=== PATIENT | female | born 1955 | race Caucasian/White ===

== ENCOUNTER 2016-10-09 06:43 | Day surgery (SDC) | payer OTHER ==
[~2016-10-09 06:43] MED LIST: Acetaminophen TAB* 325 MG PO PRN; Buffered Lidocaine 1% SYR 3ML* 3 ML/SYR SYRINGE INTRADERM ONE
[2016-10-09] MEDS ORDERED: fentaNYL* 50 MCG/ML 2 ML VIAL (100 MCG VIAL) ONE (07:26)
[2016-10-09] MEDS ORDERED: Midazolam* 1 MG/ML 5 ML VIAL (5 MG) ONE (07:26)
[2016-10-09] MEDS ORDERED: Artificial Tear OPHTH.OINT* 3.5 GM ONE (07:41)
[2016-10-09] MEDS ORDERED: Cyclopentolate 1% OPTH.SOL* 2 ML BTL ONE (07:42)
[2016-10-09] MEDS ORDERED: Phenylephrine 2.5% OPTH.SOL* 2 ML BTL ONE (07:42)
[2016-10-09] MEDS ORDERED: Flurbiprofen 0.03% OPTH.SOL* 2.5 ML BTL ONE (07:42)
[2016-10-09] MEDS ORDERED: Povidone Iodine 5% OPTH* 30 ML BTL ONE (07:42)
[2016-10-09] MEDS ORDERED: acetaZOLAMIDE TAB* 250 MG ONE (07:42)
[2016-10-09] MEDS ORDERED: Tetracaine 0.5% OPTH.SOL 4 ML* 1 DROP BTL ONE (07:42)
[2016-10-09] MEDS ORDERED: Lidocaine 1% MPF* 2 ML VIAL ONE (07:42)
[2016-10-09 08:20] VITALS: BP 161/80
[2016-10-09] MEDS ORDERED: Sodium Bicarbonate 8.4% SYR* 10 ML SYRINGE ONE (12:29)
[2016-10-09] MEDS ORDERED: Lidocain 1% EPI 1:100,000 * 30 ML MDV ONE (12:29)
[2016-10-09] MEDS ORDERED: Neomycin/Polymy/Dex OPHTH.OIN* 3.5 GM ONE (14:11)
--- NOTE | 2016-10-09 16:58 | OP ---
DATE OF OPERATION: 10/09/16 - [facility] DATE OF : 59 SURGEON: Antwon Art MD ANESTHESIOLOGIST: Rajehs Negro MD ANESTHESIA: Monitored anesthesia care. PRE-OP DIAGNOSIS: Cataract of the right eye. POST-OP DIAGNOSIS: Cataract of the right eye. OPERATIVE PROCEDURE: Cataract extraction of the right eye. IMPLANTS: SN60WF 22.5 diopter lens to the right eye. COMPLICATIONS: None. DESCRIPTION OF PROCEDURE: The patient was given phenylephrine 2.5% and cyclopentolate 1% eye drops to the operative eye in the preoperative area. The patient was brought to the operating room where a time-out was taken to identify the correct patient, site, and side of surgery. The patient's right eye was prepped and draped in usual sterile fashion with 5% Betadine. A second time-out was taken to verify the correct patient, site, and side of surgery and correct lens selection. A lid speculum was placed to the right eye. A 1 mm paracentesis blade was used to make a clear corneal incision in the superotemporal position. Preservative-free 1% lidocaine was injected into the anterior chamber. DuoVisc was then injected into the anterior chamber. A 2.75- mm keratome blade was used to make a triplanar incision at the inferotemporal position. A cystotome was used to initiate a capsulorrhexis, which was completed with Utrata forceps in a continuous and curvilinear manner. Hydrodissection of the lens was then performed with BSS on a cannula. The lens could be spun in the capsular bag. The phacoemulsification handpiece was then used with a divide and conquer technique to remove the nucleus in its entirety with 5.03 CDE. The I/A handpiece was then used to remove the residual cortical lens material. DuoVisc was then injected to inflate the capsular bag. The planned SN60WF 22.5 diopter lens was then injected into the capsular bag. The residual DuoVisc was then removed from the eye with the I/A handpiece. The corneal incisions were then hydrated and no leaks occurred at physiologic pressure around 20 mmHg per palpation. The lid speculum was then removed and drapes removed. Preservative-free Artificial Tears ointment was then placed on the surface of the operative eye. An adhesive patch and shield were then placed on the operative eye. The patient was taken to the postoperative area in stable condition. [id number]/[facility] #: [id number] MTDSudha
== END 2016-10-09 08:21 | disposition home or self-care (01) ==
LOC: OREAST 06:43
PROVIDERS: ATTEND Student in an Organized Health Care Education/Training Program
DX: H25.11 Age-related nuclear cataract, right eye (principal); Z87.891 Personal history of nicotine dependence
CPT/HCPCS: A9270-GY; J2250; J3010; V2632

== ENCOUNTER 2016-10-16 08:50 | Day surgery (SDC) | payer OTHER ==
[2016-10-16] MEDS ORDERED: Lidocaine 1% MPF* 2 ML VIAL ONE (09:50)
[2016-10-16] MEDS ORDERED: Tetracaine 0.5% OPTH.SOL 4 ML* 1 DROP BTL ONE (09:50)
[2016-10-16] MEDS ORDERED: Flurbiprofen 0.03% OPTH.SOL* 2.5 ML BTL ONE (09:50)
[2016-10-16] MEDS ORDERED: Povidone Iodine 5% OPTH* 30 ML BTL ONE (09:50)
[2016-10-16] MEDS ORDERED: acetaZOLAMIDE TAB* 250 MG ONE (09:50)
[2016-10-16] MEDS ORDERED: Neomycin/Polymy/Dex OPHTH.OIN* 3.5 GM ONE (09:50)
[2016-10-16] MEDS ORDERED: Cyclopentolate 1% OPTH.SOL* 2 ML BTL ONE (09:50)
[2016-10-16] MEDS ORDERED: Phenylephrine 2.5% OPTH.SOL* 2 ML BTL ONE (09:50)
[2016-10-16] MEDS ORDERED: Midazolam* 1 MG/ML 2 ML VIAL (2 MG) ONE ×2 (10:01→10:23)
[2016-10-16] MEDS ORDERED: fentaNYL* 50 MCG/ML 2 ML VIAL (100 MCG VIAL) ONE (10:23)
[2016-10-16 11:11] VITALS: BP 161/79
--- NOTE | 2016-10-17 02:49 | OP ---
DATE OF OPERATION: 10/16/16 - [facility] DATE OF : 59 SURGEON: Antwon Art MD ANESTHESIOLOGIST: Alfonso Phillips MD ANESTHESIA: Monitored anesthesia care. 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 POST-OP DIAGNOSIS: Cataract of the left with Fuchs. OPERATIVE PROCEDURE: Cataract extraction of the left eye. IMPLANTS: SN60WF 24.0 diopter lens to the left eye. COMPLICATIONS: None. DESCRIPTION OF PROCEDURE: The patient was given phenylephrine 2.5% and cyclopentolate 1% eyedrops in the operative eye in the preoperative area. The patient was brought to the operating room, where a time-out was taken to identify the correct patient, site, and side of the surgery. The patient's left eye was prepped and draped in the usual sterile fashion with 5% Betadine. A second time- out was taken to verify the correct patient, site, and side of surgery and correct lens selection. A lid speculum was placed to the left eye. A 1-mm paracentesis blade was used to make a clear corneal incision in the inferotemporal position. Preservative-free 1% lidocaine was injected into the anterior chamber. DuoVisc was then injected into the anterior chamber. A 2.75- mm keratome blade was used to make a triplanar incision at the superotemporal position. A cystotome was used to initiate a capsulorrhexis, which was completed with Utrata forceps in a continuous and curvilinear manner. Hydrodissection of the lens was then performed with BSS on a cannula. The lens could be spun in the capsular bag. The phacoemulsification handpiece was then used with a [id number] technique to remove the nucleus in its entirety with 6.17 CDE. The I/A handpiece was then used to remove the residual cortical lens material. DuoVisc was then injected to inflate the capsular bag. The planned SN60WF 24.0 diopter lens was then injected into the capsular bag. The residual DuoVisc was then removed from the eye with the I/A handpiece. The corneal incisions were then hydrated and no leaks occurred at physiologic pressure around 20 mmHg per palpation. The lid speculum was then removed and drapes removed. Maxitrol ointment was then placed on the surface of the operative eye. An adhesive patch and shield were then placed on the operative eye. The patient was taken to the post-operative area in stable condition. [id number]/[facility] #: [id number] DENNIS
== END 2016-10-16 11:08 | disposition home or self-care (01) ==
LOC: OREAST 08:50
PROVIDERS: ATTEND Student in an Organized Health Care Education/Training Program
DX: H26.9 Unspecified cataract (principal); H18.51 Endothelial corneal dystrophy; Z87.891 Personal history of nicotine dependence; Z88.1 Allergy status to other antibiotic agents; Z88.2 Allergy status to sulfonamides
CPT/HCPCS: A9270-GY; J2250; J3010; V2632

== ENCOUNTER 2018-02-11 11:56 | Emergency (ER) | payer OTHER ==
[2018-02-11 13:21] VITALS: BP 148/87
--- NOTE | 2018-02-11 18:37 | ED ---
Martín Connelly Jacob, scribed for Rashard Machado MD on 02/11/18 at 1257 . Lower Extremity - HPI Summary HPI Summary: Pt is a 62 y/o F w/ c/o left hamstring pain. She states hamstring has been bothering her for the past 6 weeks but pain has worsened in the last 3-4 weeks. She reports being unable to get up this morning and was experiencing a sharp pain in her hamstring at the time. On triage, pain is rated 6/10. Pt also reports that her left calf feels tight. She denies abdominal pain. Pt notes that she slipped in her kitchen recently and hyper-extended her left leg. Pain was present before fall but notes initial pain may have resulted from gardening. She reports back stiffness but believes this was due to a previous kidney infection which has since been resolved upon Abx regime. She also states her L5-S1 disc is herniated. - History of Current Complaint Chief Complaint: EDExtremityLower Stated Complaint: LT LEG PAIN Time Seen by Provider: 02/11/18 12:25 Hx Obtained From: Patient Onset/Duration: Weeks - 6 weeks ago, worse since and still present Severity Currently: Moderate Pain Intensity: 6 Pain Scale Used: 0-10 Numeric - 6/10 Timing: Constant Location: Is Discrete @ - left thigh Character Of Pain: Sharp Associated Signs And Symptoms: Negative: Abdominal Pain Aggravating Factor(s): Nothing Alleviating Factor(s): Nothing - Allergies/Home Medications Allergies/Adverse Reactions: Allergies Allergy/AdvReac Type Severity Reaction Status Date / Time MS Cephalexin [From Keflex] Allergy Severe Swelling Verified 02/11/18 12:08 ciprofloxacin [From Cipro] Allergy Tingling Verified 02/11/18 12:08 MS Bacitracin Allergy Blisters Verified 02/11/18 12:08 [From Neosporin] MS Erythromycin Allergy Stomach Verified 02/11/18 12:08 [Erythromycin] Cramps MS Neomycin [From Neosporin] Allergy Blisters Verified 02/11/18 12:08 MS Polymyxin B Allergy Blisters Verified 02/11/18 12:08 [From Neosporin] MS Sulfa Drugs [Sulfa Drugs] AdvReac Intermediate Abdominal Verified 02/11/18 12 :08 Pain PMH/Surg Hx/FS Hx/Imm Hx Cardiovascular History: Reports: Hx Hypercholesterolemia, Hx Hypertension - not diagnosed - watches diet, allergy meds increase bp Denies: Hx Pacemaker/ICD History: Reports: Hx Kidney Stones - hx 20 years, no problem since Musculoskeletal History: Denies: Hx Osteoporosis Sensory History: Reports: Hx Cataracts - bilateral, Hx Contacts or Glasses - glasses Denies: Hx Hearing Aid Opthamlomology History: Reports: Hx Cataracts - bilateral, Hx Contacts or Glasses - glasses Neurological History: Reports: Hx Headaches - reports due to allergies Psychiatric History: Denies: Hx Panic Disorder - Cancer History Cancer Type, Location and Year: 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 tubal ligation, 1992 - [facility] [place]. kidney stone removed (pt unsure of procedure), 1998 - [facility] [place]. removal melanoma right shoulder, 2014 [facility] [place]. CATARCT SURGERY ON 10/09 AND 10/16 Hx Anesthesia Reactions: No Infectious Disease History: No Infectious Disease History: Denies: Traveled Outside the [place] in Last 30 Days - Family History Known Family History: Positive: None - reviewed & noncontributory - Social History Alcohol Use: Occasionally Alcohol Amount: one wine occas Hx Substance Use: No Substance Use Type: Reports: None Hx Tobacco Use: No Smoking Status (MU): Former Smoker Amount Used/How Often: 2 per day socially Review of Systems Negative: Abdominal Pain Positive: Other - left hamstring pain, tightness in left calf All Other Systems Reviewed And Are Negative: Yes Physical Exam - Summary Physical Exam Summary: Appearance: Well-appearing, Well-nourished, lying in bed comfortably Skin: Warm, dry, no obvious rash Eyes: sclera anicteric, no conjunctival pallor ENT: mucous membranes moist, pharynx appears normal Neck: Supple, nontender Respiratory: Clear to auscultation, no signs of respiratory distress Cardiovascular: Normal S1, S2. No murmurs. Normal distal pulses in tibial and radial bilaterally. Abdomen: Soft, nontender, normal active bowel sounds present Musculoskeletal: Normal, Strength/ROM Intact Neurological: A&Ox3, awake and alert, mentation is normal, speech is fluent and appropriate Psychiatric: affect is normal, does not appear anxious or depressed Triage Information Reviewed: Yes Vital Signs On Initial Exam: Initial Vitals Temp Pulse Resp BP Pulse Ox 99.4 F 115 14 137/117 97 02/11/18 12:05 02/11/18 12:05 02/11/18 12:05 02/11/18 12:05 02/11/18 12:05 Vital Signs Reviewed: Yes Diagnostics - Vital Signs Vital Signs Temp Pulse Resp BP Pulse Ox 02/11/18 12:05 99.4 F 115 14 137/117 97 - Laboratory Lab Statement: Any lab studies that have been ordered have been reviewed, and results considered in the medical decision making process. Lower Extremity Course/Dx - Course Course Of Treatment: Middle aged woman with 3 wks of very focal pain in the left posterior proximal thigh. She is tender in a fairly well circumscribed area , without any palpable mass and no surface change on the skin. She has already had MRI of the LS spine which did not demonstrate any structural spine pathology that would cause her pain, and is being treated for UTI, though I doubt that present thigh pain is related to that. I suspect this is a primary muscle strain problem that will take some time to resolve. - Diagnoses Provider Diagnoses: Muscle strain of thigh Discharge - Sign-Out/Discharge Documenting (check all that apply): Discharge/Admit/Transfer - discharge - Discharge Plan Condition: Good Disposition: HOME Patient Education Materials: Muscle Strain (ED) Referrals: Taisha Herrera MD [Primary Care Provider] - Additional Instructions: I think you may benefit from Physical Therapy for this apparent muscle problem. Ask your PCP to refer you for that. It may be some time before this problem improves, and if it does not, your doctor may want to order an MRI of the thigh. - Billing Disposition and Condition Condition: GOOD Disposition: Home The documentation as recorded by the Martín kat Jacob accurately reflects the service I personally performed and the decisions made by me, Rashard Machado MD.
== END 2018-02-11 13:19 | disposition home or self-care (01) ==
LOC: ED 11:56
DX: S76.912A Strain of unspecified muscles, fascia and tendons at thigh level, left thigh, initial encounter (principal); W19.XXXA Unspecified fall, initial encounter; Y92.9 Unspecified place or not applicable; Z87.891 Personal history of nicotine dependence; Z88.8 Allergy status to other drugs, medicaments and biological substances
CPT/HCPCS: 99282